=== PATIENT | female | born 1945 | race American Indian/Alaskan Native ===

== ENCOUNTER 2018-07-31 10:02 | Emergency (ER) | payer MEDICARE, OTHER ==
[2018-07-31] MEDS ORDERED: TYLENOL PO ONE (10:51)
--- NOTE | 2018-07-31 10:56 | Emergency Department Report ---
ED Neuro Deficit HPI - General Chief Complaint: Neuro Symptoms/Deficit Stated Complaint: (L) SIDE TINGLE/SEVERE HEADACHE Time Seen by Provider: 07/31/18 10:46 Source: patient Mode of arrival: Ambulatory Limitations: No Limitations - History of Present Illness Initial Comments: Mrs. Zamorano is a 72 years old female with history of hypertension and migra ine. Patient presented to the ER complaining of a headache in the left upper and lower extremity numbness. Patient stated that her symptoms as being going on for years and she has been evaluated by a neurologist and she was to light she have migraine but patient stated that for the last 3-4 days her symptoms is difficult getting worse and she wanted to make sure that she does not have anything else going on. Patient denied any chest pain, shortness of breath, weakness, bowel or bladder incontinence. -: year(s) Location: other (headache and numbness to the left upper and lower extremity) Presenting Symptoms: Absent: Weak/Paralyzed One Side, Sudden, Severe Headache, Blurred/Loss of Vision, Facial Droop/Numbness, Unable to Speak Clearly, Altered Mental Status History of same: Yes - Related Data Home Medications: Home Medications Medication Instructions Recorded Confirmed Last Taken AtorvaSTATin [Lipitor] 20 mg PO QHS 07/31/18 07/31/18 Unknown Carvedilol [Coreg] 3.125 mg PO BID 07/31/18 07/31/18 Unknown Levothyroxine [Synthroid] 88 mcg PO QAM 07/31/18 07/31/18 Unknown Lisinopril [Zestril] 20 mg PO QDAY 07/31/18 07/31/18 Unknown Allergies/Adverse Reactions: Allergies Allergy/AdvReac Type Severity Reaction Status Date / Time No Known Allergies Allergy Unverified 07/31/18 10:03 ED Review of Systems ROS: Stated complaint: (L) SIDE TINGLE/SEVERE HEADACHE Other details as noted in HPI Comment: All other systems reviewed and negative Constitutional: denies: chills, fever Respiratory: denies: cough, orthopnea, shortness of breath, SOB with exertion Cardiovascular: denies: chest pain, palpitations Gastrointestinal: denies: abdominal pain, nausea, vomiting, diarrhea, constipation, hematemesis, melena, hematochezia Musculoskeletal: denies: back pain Neurological: headache, numbness. denies: weakness, paresthesias, confusion, abnormal gait ED Past Medical Hx - Past Medical History Hx Hypertension: Yes Additional medical history: MVP/ HIGH CHOLESTROL - Surgical History Additional Surgical History: HYSTO /BUNION/ LYMP NODE REMOVAL - Social History Smoking Status: Never Smoker Substance Use Type: None - Medications Home Medications: Home Medications Medication Instructions Recorded Confirmed Last Taken Type AtorvaSTATin [Lipitor] 20 mg PO QHS 07/31/18 07/31/18 Unknown History Carvedilol [Coreg] 3.125 mg PO BID 07/31/18 07/31/18 Unknown History Levothyroxine [Synthroid] 88 mcg PO QAM 07/31/18 07/31/18 Unknown History Lisinopril [Zestril] 20 mg PO QDAY 07/31/18 07/31/18 Unknown History ED Neuro Physical Exam - General Limitations: No Limitations General appearance: alert, in no apparent distress Suspected Stroke: No - Head Head exam: Present: atraumatic, normocephalic, normal inspection - Eye Eye exam: Present: normal appearance, PERRL - ENT ENT exam: Present: normal exam, normal orophraynx, mucous membranes moist - Neck Neck exam: Present: normal inspection, full ROM. Absent: tenderness, meningismus, lymphadenopathy, thyromegaly - Respiratory Respiratory exam: Present: normal lung sounds bilaterally - Cardiovascular Cardiovascular Exam: Present: regular rate, normal rhythm, normal heart sounds - GI/Abdominal GI/Abdominal exam: Present: soft, normal bowel sounds. Absent: distended, tenderness, guarding, rebound, rigid, organomegaly, mass, bruit, pulsatile mass - Extremities Exam Extremities exam: Present: normal inspection, full ROM, normal capillary refill. Absent: tenderness, pedal edema, calf tenderness - Back Exam Back exam: Present: normal inspection, full ROM. Absent: CVA tenderness (R), CVA tenderness (L) - Neurological Exam Neurological exam: Present: alert, oriented X3, CN II-XII intact, normal gait, reflexes normal - NIHSS Assessment Interval: Baseline 1a. Level of Consciousness: alert/keenly responsive 1b. LOC Questions: answers both correctly 1c. LOC Commands: performs tasks correctly 2. Best Gaze: normal 3. Visual: no visual loss 4. Facial Palsy: normal symmetrical movement 5b. Motor Arm Right: no drift 5a. Motor Arm Left: no drift 6a. Motor Leg Left: no drift 6b. Motor Leg Right: no drift 7. Limb Ataxia: absent 8. Sensory: normal 9. Best Language: no aphasia 10. Dysarthria: normal 11. Extinction/Inattention: no abnormality Total Score: 0 Stroke Severity: No Stroke Symptoms - Psychiatric Psychiatric exam: Present: normal mood. Absent: depressed, agitated - Skin Skin exam: Present: warm, intact, normal color ED Course Vital Signs 07/31/18 07/31/18 07/31/18 10:14 11:02 11:10 Temperature 98 F Pulse Rate 58 L 64 66 Respiratory 18 18 Rate Blood Pressure 163/83 154/84 Blood Pressure 154/84 [Left] O2 Sat by Pulse 100 98 Oximetry - Lab Data Result diagrams: 07/31/18 11:02 07/31/18 11:02 Lab Results 07/31/18 07/31/18 07/31/18 Range/Units 10:14 11:02 11:02 WBC 3.7 L (4.5-11.0) K/mm3 RBC 4.05 (3.65-5.03) M/mm3 Hgb 11.5 (10.1-14.3) gm/dl Hct 34.4 (30.3-42.9) % MCV 85 (79-97) fl MCH 29 (28-32) pg MCHC 34 (30-34) % RDW 13.6 (13.2-15.2) % Plt Count 264 (140-440) K/mm3 Lymph % (Auto) 35.0 (13.4-35.0) % Irwin % (Auto) 11.2 H (0.0-7.3) % Eos % (Auto) 1.9 (0.0-4.3) % Baso % (Auto) 0.9 (0.0-1.8) % Lymph # 1.3 (1.2-5.4) K/mm3 Irwin # 0.4 (0.0-0.8) K/mm3 Eos # 0.1 (0.0-0.4) K/mm3 Baso # 0.0 (0.0-0.1) K/mm3 Seg Neutrophils % 51.0 (40.0-70.0) % Seg Neutrophils # 1.9 (1.8-7.7) K/mm3 PT 12.4 (12.2-14.9) Sec. INR 0.87 (0.87-1.13) APTT 27.0 (24.2-36.6) Sec. Sodium (137-145) mmol/L Potassium (3.6-5.0) mmol/L Chloride (98-107) mmol/L Carbon Dioxide (22-30) mmol/L Anion Gap mmol/L BUN (7-17) mg/dL Creatinine (0.7-1.2) mg/dL Estimated GFR ml/min BUN/Creatinine Ratio % Glucose (65-100) mg/dL POC Glucose 114 H (70-105) Calcium (8.4-10.2) mg/dL 07/31/18 Range/Units 11:02 WBC (4.5-11.0) K/mm3 RBC (3.65-5.03) M/mm3 Hgb (10.1-14.3) gm/dl Hct (30.3-42.9) % MCV (79-97) fl MCH (28-32) pg MCHC (30-34) % RDW (13.2-15.2) % Plt Count (140-440) K/mm3 Lymph % (Auto) (13.4-35.0) % Irwin % (Auto) (0.0-7.3) % Eos % (Auto) (0.0-4.3) % Baso % (Auto) (0.0-1.8) % Lymph # (1.2-5.4) K/mm3 Irwin # (0.0-0.8) K/mm3 Eos # (0.0-0.4) K/mm3 Baso # (0.0-0.1) K/mm3 Seg Neutrophils % (40.0-70.0) % Seg Neutrophils # (1.8-7.7) K/mm3 PT (12.2-14.9) Sec. INR (0.87-1.13) APTT (24.2-36.6) Sec. Sodium 141 (137-145) mmol/L Potassium 5.0 (3.6-5.0) mmol/L Chloride 103.4 (98-107) mmol/L Carbon Dioxide 27 (22-30) mmol/L Anion Gap 16 mmol/L BUN 15 (7-17) mg/dL Creatinine 0.7 (0.7-1.2) mg/dL Estimated GFR > 60 ml/min BUN/Creatinine Ratio 21 % Glucose 120 H (65-100) mg/dL POC Glucose (70-105) Calcium 8.7 (8.4-10.2) mg/dL - Radiology Data Radiology results: report reviewed CT brain is negative for acute finding. - Medical Decision Making Mrs. Zamorano is a 72 years old female with history of hypertension and migraine. Patient presented to the ER complaining of a headache in the left upper and lower extremity numbness. Patient stated that her symptoms as being going on for years and she has been evaluated by a neurologist and she was to light she have migraine but patient stated that for the last 3-4 days her symptoms is difficult getting worse and she wanted to make sure that she does no t have anything else going on. Patient denied any chest pain, shortness of breath, weakness, bowel or bladder incontinence. Patient labs reviewed and is unremarkable. CT brain is negative for acute finding. Patient blood pressure was high and treated with clonidine. Patient stated that she is feeling much better after the Tylenol. Stroke scale is 0. Patient's symptoms is most likely related to her malignant hypertension, I advised the patient to follow-up with her primary care physician and to keep a blood pressure log for further management by her primary care physician. Patient also advised to return to the ER if symptoms are not improved. Critical care attestation.: If time is entered above; I have spent that time in minutes in the direct care of this critically ill patient, excluding procedure time. ED Disposition Clinical Impression: Headache, Malignant hypertension Disposition: - TO HOME OR SELFCARE Is pt being admited?: No Condition: Stable Instructions: Hypertension (ED), Migraine Headache (ED) Referrals: JOSEFA BA MD [Primary Care Provider] - 3-5 Days
[2018-07-31] MEDS: CATAPRES PO ONE ×2 (11:10→12:14)
[2018-07-31 11:21] LABS: Basophils % (Auto) 0.9 % (0.0-1.8); Eosinophils # (Auto) 0.1 K/mm3 (0.0-0.4); Eosinophils % (Auto) 1.9 % (0.0-4.3); Hematocrit 34.4 % (30.3-42.9); Hemoglobin 11.5 gm/dl (10.1-14.3); Lymphocytes # (Auto) 1.3 K/mm3 (1.2-5.4); Mean Corpuscular HGB Conc 34 % (30-34); Mean Corpuscular Volume 85 fl (79-97); Monocytes # (Auto) 0.4 K/mm3 (0.0-0.8); Monocytes % (Auto) 11.2 % (0.0-7.3); Platelet Count 264 K/mm3 (140-440); Red Blood Count 4.05 M/mm3 (3.65-5.03); Red Cell Distribution Width 13.6 % (13.2-15.2)
[2018-07-31 11:32] LABS: INR 0.87 (0.87-1.13)
[2018-07-31 11:34] LABS: BUN/Creatinine Ratio 21; Blood Urea Nitrogen 15 mg/dL (7-17); Calcium 8.7 mg/dL (8.4-10.2); Hemolysis Index 5
--- NOTE | 2018-07-31 11:54 | Cat Scan Report ---
PROCEDURE: CT HEAD/BRAIN WO CON TECHNIQUE: A noncontrast CT of the head was performed. HISTORY: Headache COMPARISON: None FINDINGS: There is no acute intracranial hemorrhage. There is no brain edema, mass effect or midline shift. Ventricular size is appropriate for brain volume. There is no abnormal extra-axial fluid collections. There is no skull fracture seen. The visualized paranasal sinuses are clear. IMPRESSION: There is no acute intracranial abnormality seen. This document is electronically signed by Kimberly De Los Santos MD., July 31 2018 11:52:25 AM ET
[2018-07-31 13:01] VITALS: BP 139/83
== END 2018-07-31 13:10 | disposition home or self-care (01) ==
LOC: ED 10:02
DX: I10 Essential (primary) hypertension (principal); E78.00 Pure hypercholesterolemia, unspecified; Z79.899 Other long term (current) drug therapy
CPT/HCPCS: 36415; 70450; 80048; 82962; 85025; 85610; 85730; 99284